=== PATIENT | female | born 1980 | race Caucasian/White ===

== ENCOUNTER 2017-06-28 11:10 | Emergency (ER) | payer MEDICAID ==
[2017-06-28] MEDS: IPRATROPIUM (NEB) 0.5 MG/2.5 ML AMP NEB (14:16)
[2017-06-28] MEDS: ALBUTEROL 0.083% (NEB) 2.5 MG/3 ML AMP NEB (14:16)
[2017-06-28] MEDS: predniSONE 20 MG TAB PO (14:36)
== END 2017-06-28 15:25 | disposition home or self-care (01) ==
LOC: FTE 11:10
DX: J20.9 Acute bronchitis, unspecified (principal)
CPT/HCPCS: 71045; 94664; 99284-25